=== PATIENT | female | born 1980 | race Caucasian/White ===

== ENCOUNTER 2020-08-10 11:07 | Inpatient (IN) | payer MEDICARE, MEDICAID ==
[~2020-08-10] VITALS: Ht 144.8 cm; Wt 40.8 kg
[~2020-08-10 11:07] MED LIST: ALPR0.5T; HYDR-1348; IBUP-1636; WARF5TAB76
[2020-08-10] MEDS ORDERED: ONDANSETRON HCL 4MG/2ML INJ IV STA (12:20)
[2020-08-10] MEDS ORDERED: MORPHINE SULFATE 4 MG/ML CPJ (NOT FOR IM USE) IV STA (12:20)
[2020-08-10] MEDS ORDERED: SODIUM CHLORIDE 0.9% 1,000 ML IV ONE (12:30)
[2020-08-10 12:46] LABS: BG BASE EXCESS -3.9 mmol/L (-2.0-2.0); BG CARBOXYHEMOGLOBIN 0.3 % (0.5-1.5); BG DEOXYHEMOGLOBIN 2.6 % (0.0-5.0); BG HCO3 ACT 18.7 mmol/L (22.0-26.0); BG METHEMOGLOBIN 0.2 % (0.0-1.5); BG OXYGEN SATURATION 97.4 % (92.0-98.5); BG OXYHEMOGLOBIN 96.9 % (94.0-97.0); BG PCO2 24.5 mmHg (35.0-45.0); BG PH 7.501 (7.350-7.450); BG PO2 104.8 mmHg (75.0-100.0); BG SAMPLE SITE RIGHT BRACHIAL; BG VENT MODE ROOM AIR
[2020-08-10 13:10] LABS: MEAN CORPUSCULAR HEMOGLOBIN 24.2 pg (28.0-32.0); MEAN CORPUSCULAR VOLUME 76.6 fL (81.0-99.0); MEAN PLATELET VOLUME 9.4 fl (7.4-10.4); PLATELET 190 x1000/uL (130-400); RED BLOOD CELL COUNT 2.42 mill/uL (4.2-5.4); RED CELL DISTRIBUTION WIDTH 19.3 % (11.6-14.6)
[2020-08-10 13:17] LABS: CHLORIDE 107 mEq/L (98-107)
[2020-08-10 13:19] LABS: HEMATOCRIT. 18.5 % (36.0-48.0); HEMOGLOBIN. 5.9 g/dL (12.0-16.0)
[2020-08-10 13:24] LABS: INR 1.3; PARTIAL THROMBOPLASTIN TIME 48.3 sec (23.4-31.0)
[2020-08-10 13:25] LABS: HCG SCREEN NEGATIVE
[2020-08-10 14:02] LABS: PLATELET ESTIMATE NORMAL
[2020-08-10] MEDS ORDERED: DEXAMETHASONE 10 MG/ML VIAL IV ONE (14:15)
[2020-08-10] MEDS ORDERED: ACETAMINOPHEN 325MG TABLET PO PRN (16:15)
[2020-08-10] MEDS: FERROUS SULFATE 325MG TABLET PO SCH (18:30)
[2020-08-10] MEDS: DOCUSATE SODIUM 250MG CAPSULE PO SCH (18:30)
[2020-08-10 20:20] LABS: CLARITY URINE CLEAR (CLEAR); COLOR URINE YELLOW (YELLOW); KETONES URINE 3+ (NEGATIVE); LEUKOCYTE ESTERASE URINE TRACE (NEGATIVE); NITRITE URINE NEGATIVE (NEGATIVE); OCCULT BLOOD URINE 3+ (NEGATIVE); PH URINE 5.5 (4.5-8.0); PROTEIN URINE 2+ (NEGATIVE); SPECIFIC GRAVITY URINE 1.021 (1.005-1.030); UROBILINOGEN URINE 0.2 E.U./dL (0.2-1.0)
[2020-08-10 20:34] LABS: *AMPHETAMINES SCREEN URINE NEGATIVE (NEGATIVE); *BARBITURATES SCREEN URINE NEGATIVE (NEGATIVE); *BENZODIAZEPINES SCREEN URINE NEGATIVE (NEGATIVE); *COCAINE SCREEN URINE NEGATIVE (NEGATIVE)
[2020-08-10 20:35] LABS: CANNABINOID URINE SCREEN PRESUMTIVE POSITIVE (NEGATIVE); METHADONE URINE SCREEN NEGATIVE (NEGATIVE); OPIATES URINE SCREEN PRESUMTIVE POSITIVE (NEGATIVE); PHENCYCLIDINE URINE SCREEN NEGATIVE (NEGATIVE)
[2020-08-10 23:00] VITALS: BP 111/55
[2020-08-11 00:30] VITALS: BP 111/55
[2020-08-11] MEDS: MORPHINE SULFATE 2 MG/ML CPJ (NOT FOR IM USE) IV PRN ×2 (00:30→12:45)
[2020-08-11] MEDS: ONDANSETRON HCL 4MG/2ML INJ IV PRN ×3 (01:09→19:39)
[2020-08-11] MEDS ORDERED: DOCU-150 PO (01:50)
[2020-08-11] MEDS ORDERED: NORT25CA PO (01:50)
[2020-08-11] MEDS ORDERED: CHOL500051 PO (01:50)
[2020-08-11] MEDS ORDERED: ATOR20TA65 PO (01:50)
[2020-08-11] MEDS ORDERED: PREG75CA75 PO (01:50)
[2020-08-11] MEDS ORDERED: APIX5TAB PO (01:50)
[2020-08-11] MEDS ORDERED: FAMO20TA8 PO (01:50)
[2020-08-11 03:01] LABS: HEMATOCRIT 26.6 % (36.0-48.0); HEMOGLOBIN 8.9 g/dL (12.0-16.0)
[2020-08-11 04:00] VITALS: BP 114/45
[2020-08-11 08:00] VITALS: BP 120/82
[2020-08-11] MEDS: FERROUS SULFATE 325MG TABLET PO SCH ×3 (09:19→17:24)
[2020-08-11] MEDS: DOCUSATE SODIUM 250MG CAPSULE PO SCH (09:19)
[2020-08-11 12:00] VITALS: BP 127/59
[2020-08-11] MEDS ORDERED: INFLUENZA VACCINE 05/PF 0.5 ML VIAL IM ONE (12:00)
[2020-08-11 16:00] VITALS: BP 130/71
[2020-08-11 20:00] VITALS: BP 120/58
[2020-08-11] MEDS ORDERED: ZOLPIDEM TARTRATE 5MG TABLET PO PRN (20:00)
[2020-08-12] VITALS: BP 120/58
[2020-08-12 04:00] VITALS: BP 99/52
[2020-08-12] MEDS: ONDANSETRON HCL 4MG/2ML INJ IV PRN ×3 (06:14→23:04)
[2020-08-12] MEDS: MORPHINE SULFATE 2 MG/ML CPJ (NOT FOR IM USE) IV PRN ×2 (06:14→20:45)
[2020-08-12 06:29] LABS: BASOPHILS % 0.4 % (0.0-2.0); EOSINOPHILS % 0.4 % (0.0-5.0); HEMATOCRIT. 25.1 % (36.0-48.0); HEMOGLOBIN. 8.5 g/dL (12.0-16.0); LYMPHOCYTES % 13.3 % (20.0-50.0); MEAN CORPUSCULAR HEMOGLOBIN 28.1 pg (28.0-32.0); MEAN CORPUSCULAR VOLUME 82.8 fL (81.0-99.0); MONOCYTES % 7.1 % (2.0-8.0); NEUTROPHILS % 78.8 % (40.0-76.0); PLATELET 64 x1000/uL (130-400); RED BLOOD CELL COUNT 3.03 mill/uL (4.2-5.4); RED CELL DISTRIBUTION WIDTH 19.6 % (11.6-14.6)
[2020-08-12 06:34] LABS: CHLORIDE 108 mEq/L (98-107)
[2020-08-12] MEDS: FERROUS SULFATE 325MG TABLET PO SCH ×3 (07:50→17:50)
[2020-08-12 08:00] VITALS: BP 121/54
[2020-08-12 12:00] VITALS: BP 111/63
[2020-08-12] MEDS: DOCUSATE SODIUM 250MG CAPSULE PO SCH (13:05)
[2020-08-12 16:00] VITALS: BP 112/64
[2020-08-12 20:00] VITALS: BP 137/60
[2020-08-12] MEDS ORDERED: LORAZEPAM 2MG/ML CPJ IV PRN (22:00)
[2020-08-13] VITALS: BP 128/62
[2020-08-13] MEDS: MORPHINE SULFATE 2 MG/ML CPJ (NOT FOR IM USE) IV PRN ×3 (02:04→10:06)
[2020-08-13 04:00] VITALS: BP 126/67
[2020-08-13] MEDS: ONDANSETRON HCL 4MG/2ML INJ IV PRN (05:23)
[2020-08-13] MEDS: DOCUSATE SODIUM 100MG CAPSULE PO SCH ×3 (06:41→18:02)
[2020-08-13] MEDS: FERROUS SULFATE 325MG TABLET PO SCH ×3 (07:50→17:50)
[2020-08-13 08:00] VITALS: BP 129/72
[2020-08-13 09:27] LABS: BASOPHILS % 0.4 % (0.0-2.0); EOSINOPHILS % 0.3 % (0.0-5.0); HEMATOCRIT. 31.5 % (36.0-48.0); HEMOGLOBIN. 10.4 g/dL (12.0-16.0); LYMPHOCYTES % 11.6 % (20.0-50.0); MEAN CORPUSCULAR HEMOGLOBIN 27.7 pg (28.0-32.0); MEAN CORPUSCULAR VOLUME 83.8 fL (81.0-99.0); MONOCYTES % 7.2 % (2.0-8.0); NEUTROPHILS % 80.5 % (40.0-76.0); RED BLOOD CELL COUNT 3.75 mill/uL (4.2-5.4); RED CELL DISTRIBUTION WIDTH 20.4 % (11.6-14.6)
[2020-08-13] MEDS ORDERED: MAGNESIUM/ALUMINUM HYDROXIDE/SIMETHICONE 30ML UDC PO NR (09:45)
[2020-08-13 09:47] LABS: CHLORIDE 102 mEq/L (98-107)
[2020-08-13 10:51] LABS: PLATELET ESTIMATE MARKEDLY DECREASED
[2020-08-13 10:54] LABS: MEAN PLATELET VOLUME 9.4 fl (7.4-10.4); PLATELET 48 x1000/uL (130-400)
[2020-08-13] MEDS ORDERED: KCL 20MEQ/100ML PREMIX 100 ML IV NR (13:00)
[2020-08-13] MEDS ORDERED: IOHEXOL-350 100 ML BOTTLE ONE (13:02)
[2020-08-13] MEDS: KETOROLAC 30MG/ML VIAL IV PRN ×2 (13:34→21:35)
[2020-08-13 15:26] LABS: INR 1.3; PARTIAL THROMBOPLASTIN TIME 52.5 sec (23.4-31.0); PROTHROMBIN TIME 13.5 sec (9.6-11.0)
[2020-08-13 20:00] VITALS: BP 104/62
[2020-08-14] VITALS: BP 90/54
[2020-08-14 04:00] VITALS: BP 98/61
[2020-08-14 07:42] LABS: CHLORIDE 102 mEq/L (98-107)
[2020-08-14 07:46] LABS: BASOPHILS % 0.3 % (0.0-2.0); EOSINOPHILS % 1.9 % (0.0-5.0); HEMATOCRIT. 24.6 % (36.0-48.0); HEMOGLOBIN. 8.4 g/dL (12.0-16.0); LYMPHOCYTES % 15.4 % (20.0-50.0); MEAN CORPUSCULAR HEMOGLOBIN 28.1 pg (28.0-32.0); MEAN CORPUSCULAR VOLUME 82.5 fL (81.0-99.0); NEUTROPHILS % 76.4 % (40.0-76.0); RED BLOOD CELL COUNT 2.98 mill/uL (4.2-5.4); RED CELL DISTRIBUTION WIDTH 20.2 % (11.6-14.6)
[2020-08-14 07:56] LABS: HAPTOGLOBIN 115 mg/dL (30-200)
[2020-08-14 08:00] VITALS: BP 105/59
[2020-08-14] MEDS: ONDANSETRON HCL 4MG/2ML INJ IV PRN ×3 (08:42→17:25)
[2020-08-14] MEDS: DOCUSATE SODIUM 100MG CAPSULE PO SCH ×2 (08:42→17:25)
[2020-08-14] MEDS: FERROUS SULFATE 325MG TABLET PO SCH ×3 (08:42→17:25)
[2020-08-14 08:50] LABS: PLATELET 43 x1000/uL (130-400)
[2020-08-14] MEDS: KETOROLAC 30MG/ML VIAL IV PRN (10:11)
[2020-08-14] MEDS ORDERED: POTASSIUM CHLORIDE 20MEQ TABLET SR PO NR (11:45)
[2020-08-14 12:00] VITALS: BP 106/67
[2020-08-14 16:00] VITALS: BP 105/82
[2020-08-14 17:08] LABS: HEMATOCRIT 25.5 % (36.0-48.0); HEMOGLOBIN 8.5 g/dL (12.0-16.0)
[2020-08-14 20:00] VITALS: BP 114/24
[2020-08-15] VITALS: BP 94/56
[2020-08-15] MEDS: KETOROLAC 30MG/ML VIAL IV PRN (01:56)
[2020-08-15 04:00] VITALS: BP 96/50
[2020-08-15 07:19] LABS: BASOPHILS % 0.3 % (0.0-2.0); EOSINOPHILS % 3.1 % (0.0-5.0); HEMATOCRIT. 22.5 % (36.0-48.0); HEMOGLOBIN. 7.6 g/dL (12.0-16.0); LYMPHOCYTES % 17.6 % (20.0-50.0); MEAN CORPUSCULAR HEMOGLOBIN 27.6 pg (28.0-32.0); MEAN CORPUSCULAR VOLUME 82.3 fL (81.0-99.0); MEAN PLATELET VOLUME 10.7 fl (7.4-10.4); MONOCYTES % 7.3 % (2.0-8.0); NEUTROPHILS % 71.7 % (40.0-76.0); PLATELET 65 x1000/uL (130-400); RED BLOOD CELL COUNT 2.73 mill/uL (4.2-5.4); RED CELL DISTRIBUTION WIDTH 20.1 % (11.6-14.6)
[2020-08-15 07:28] LABS: CHLORIDE 108 mEq/L (98-107)
[2020-08-15 08:00] VITALS: BP 107/73
[2020-08-15] MEDS: ONDANSETRON HCL 4MG/2ML INJ IV PRN ×3 (08:50→19:14)
[2020-08-15] MEDS: DOCUSATE SODIUM 100MG CAPSULE PO SCH ×2 (08:50→19:12)
[2020-08-15] MEDS: FERROUS SULFATE 325MG TABLET PO SCH ×3 (08:50→19:12)
[2020-08-15 12:00] VITALS: BP 95/56
[2020-08-15 16:00] VITALS: BP 107/73
[2020-08-15 20:39] LABS: HEMATOCRIT 30.4 % (36.0-48.0); HEMOGLOBIN 10.5 g/dL (12.0-16.0)
[2020-08-15 20:52] VITALS: BP 108/75
[2020-08-17 13:06] LABS: DRVVT LA 131.2 sec (0.0-47.0); PTT-LA 135.8 sec (0.0-51.9)
[2020-08-17 14:08] LABS: ANA IFA Negative (.)
[2020-08-18 04:06] LABS: ANTI-CARDIOLIPIN AB IGA < 9 APL U/mL (0-11); ANTI-CARDIOLIPIN AB IGG 99 GPL U/mL (0-14); ANTI-CARDIOLIPIN AB IGM 88 MPL U/mL (0-12)
[2020-08-18 07:08] LABS: DRVVT LA CONFIRMATION 2.4 ratio (0.8-1.2); DRVVT MIX LA 131.1 sec (0.0-40.4); HEXAGONAL PHASE PHOSPHOLIPID 95 sec (0-11); LUPUS ANTICOAG INTERPRETATION Comment: (.); PTT-LA MIX 130.8 sec (0.0-48.9)
== END 2020-08-15 21:35 | disposition home or self-care (01) | DRG 811 ==
LOC: ER 11:20 → EDBEDREQSVC 13:51 → EDBEDREQ 13:52 → 6WST 14:02 → EDBEDREQ 14:15 → EDBEDREQSVC 17:19 → ENRESERV 21:47
PROVIDERS: ADMIT Internal Medicine; ATTEND Internal Medicine
PROC: 30233N1 Transfusion of Nonautologous Red Blood Cells into Peripheral Vein, Percutaneous Approach (ICD-10-PCS; principal; 2020-08-10)
PROC: 30233R1 Transfusion of Nonautologous Platelets into Peripheral Vein, Percutaneous Approach (ICD-10-PCS; 2020-08-14)
DX: D62 Acute posthemorrhagic anemia (principal); I21.4 Non-ST elevation (NSTEMI) myocardial infarction; D68.61 Antiphospholipid syndrome; E44.1 Mild protein-calorie malnutrition; M35.8 Other specified systemic involvement of connective tissue; Z68.1 Body mass index [BMI] 19.9 or less, adult; N92.0 Excessive and frequent menstruation with regular cycle; D61.818 Other pancytopenia; F41.9 Anxiety disorder, unspecified; N93.8 Other specified abnormal uterine and vaginal bleeding; E87.6 Hypokalemia; F12.10 Cannabis abuse, uncomplicated; J45.909 Unspecified asthma, uncomplicated; I10 Essential (primary) hypertension; Z79.01 Long term (current) use of anticoagulants; Z81.8 Family history of other mental and behavioral disorders; Z82.49 Family history of ischemic heart disease and other diseases of the circulatory system; Z83.3 Family history of diabetes mellitus; I25.2 Old myocardial infarction; Z86.718 Personal history of other venous thrombosis and embolism; Z88.2 Allergy status to sulfonamides; Z88.8 Allergy status to other drugs, medicaments and biological substances; Z79.1 Long term (current) use of non-steroidal anti-inflammatories (NSAID); Z79.899 Other long term (current) drug therapy; Z98.891 History of uterine scar from previous surgery; D72.829 Elevated white blood cell count, unspecified
CPT/HCPCS: 36415; 36600; 71045; 71275; 76830; 76856; 80048; 80053; 80061; 80305; 81003; 82375; 82805; 83010; 83540; 83550; 83615; 83880; 84443; 84484; 84703; 85014; 85018; 85025; 85049; 85613; 85732; 86147; 86256; 86850; 86880; 86900; 86920; 90686; 93005; 93306; 99291; C1893; J1100; J1885; J2060; J2270; J2405; J3480; J7030; J7040; P9016; P9034; Q9967